=== PATIENT | female | born 1960 | race Caucasian/White ===

== ENCOUNTER 2017-01-12 11:12 | Observation (INO) ==
[2017-01-12 12:47] LABS: Basophils % 0.3 %; Eosinophils % 0.1 %; Hematocrit 43.6 % (35.3-44.9); Hemoglobin 13.9 g/dL (11.5-15.4); Immature Granulocytes % 0.3 % (0-4); Lymphocytes # 1.8 K/mcL (0.6-4.6); Lymphocytes % 11.4 %; Mean Corpuscular HGB Conc 31.9 g/dL (31.6-35.5); Mean Corpuscular Hemoglobin 26.1 pg (28.0-33.3); Mean Platelet Volume 11.4 fL (9.4-12.4); Monocytes % 6.2 %; Platelet Count 289 K/mcL (140-400); Red Blood Count 5.32 M/mcL (3.82-4.97); Red Cell Distribution Width 15.7 % (11.5-14.5); Segmented Neutrophils % 81.7 %
[2017-01-12 13:04] LABS: BUN/Creatinine Ratio 9 (6-26); Blood Urea Nitrogen 6 mg/dL (7-20); Carbon Dioxide 20 mEq/L (19-29); Chloride 110 mEq/L (98-109); Glucose 133 mg/dL (70-99); Osmolality,Calculated 290 (280-300); Potassium 3.9 mEq/L (3.5-4.5); Sodium 140 mEq/L (136-145); eGFR For African Americans > 60 (> 60); eGFR For Non-African Americans > 60 (> 60)
[2017-01-12] MEDS ORDERED: Ipratropium/Albuterol Neb 3 ML IH ONE (13:26)
[2017-01-12] MEDS ORDERED: 0.9 % Sodium Chloride 1,000 ML IVC ONE (13:27)
[2017-01-12] MEDS ORDERED: methylPREDNISolone 125 MG/2 ML VIAL IVP ONE (13:27)
[2017-01-12] MEDS ORDERED: Levofloxacin 750 MG/150 ML 750 MG/150 ML BAG IVPB ONE (16:10)
--- NOTE | 2017-01-12 16:18 | Emergency Department Note ---
Disposition Clinical Impression: Hypoxia, COPD exacerbation Left lower lobe pneumonia Qualifiers: Pneumonia type: due to unspecified organism Qualified Code(s): J18.1 - Lobar pneumonia, unspecified organism Disposition: Admitted As Inpatient Condition: Fair General Adult HPI - General Chief complaint: ED Chest Pain Stated complaint: cp constant since last night Time Seen by Provider: 01/12/17 12:48 Source: patient, family Limitations: no limitations Nursing Notes Reviewed: Yes Vital Signs Reviewed: Yes - History of Present Illness HPI Narrative: 56 year old female presents to the emergency department with a complaint of pleuritic chest pain that started since last night. Patient is a COPDer with no history of having COPD exacerbations. She does not require any oxygen at home. She is on multiple respiratory inhalers for management of her COPD. Patient states that she has had a history of blood clots previously. Pain Scale: 9 - Related Data Home Medications Medication Instructions Recorded Confirmed Albuterol Sulfate [Albuterol 2 puff IH Q4HR PRN 02/12/15 01/12/17 Inhaler] Budesonide/Formoterol 160/4.5 2 puff IH BID 02/12/15 01/12/17 [Symbicort 160/4.5] Dexlansoprazole [Dexilant] 60 mg PO BID 02/12/15 01/12/17 Sennosides/Docusate Sodium [Senna 1 tab PO DAILY 02/12/15 01/12/17 Plus] Loratadine [Claritin] 10 mg PO DAILY PRN 06/17/15 01/12/17 Ondansetron [Zofran] 8 mg PO DAILY 06/17/15 01/12/17 Zolpidem [Ambien] 10 mg PO HS 06/17/15 01/12/17 Oxycodone HCl [Oxaydo] 5 mg PO Q6H PRN 01/02/16 01/12/17 Atorvastatin Calcium [Lipitor] 20 mg PO HS 01/12/17 01/12/17 Oxycodone HCl [Oxycontin] 40 mg PO Q12H 01/12/17 01/12/17 Previous Rx's Medication Instructions Recorded Clopidogrel [Plavix] 75 mg PO DAILY 30 Days tablet 02/20/15 Allergies Allergy/AdvReac Type Severity Reaction Status Date / Time aspirin [ASA] Allergy Intermediate Hives Verified 01/12/17 11:19 All systems ED: reviewed and negative except as stated. Review of Systems: As Per HPI Constitutional: Denies: fever Cardiovascular: Reports: chest pain, other Respiratory: Reports: dyspnea. Denies: wheezes, hemoptysis Neurological: Denies: headache Past Medical History - Past Medical History Medical history: Reports: arthritis, COPD, fibromyalgia, GERD, hyperlipidemia Surgical history: Reports: other (She has had exporatory surgery for ruptured tubal .) Psychiatric history: Reports: no psych history [employer] history: Reports: ectopic - Social History Smoking Status: Current every day smoker Smokeless Tobacco Status: No Alcohol use: Reports: none Drug use: Reports: none Physical Exam - General Limitations: no limitations General appearance: alert, in no apparent distress - Head Head exam: atraumatic, normocephalic - Eye Eye exam: Present: EOMI. Absent: scleral icterus, conjunctival injection - ENT ENT exam: normal oropharynx - Neck Neck exam: Present: trachea midline - Chest Chest inspection: Present: symmetric chest wall rise - Respiratory Respiratory exam: Present: normal lung sounds bilaterally, respiratory distress - Cardiovascular Cardiovascular exam: Present: tachycardia - Abdominal Exam Abdominal exam: Present: soft, Non-Tender. Absent: distention, guarding, rebound - Extremities Exam Extremities exam: Absent: pedal edema, calf tenderness Course Vital Signs Temperature 97.9 F 01/12/17 11:16 Pulse Rate 116 01/12/17 11:16 Respiratory Rate 20 01/12/17 11:16 Blood Pressure 143/92 01/12/17 11:16 O2 Sat by Pulse Oximetry 95 01/12/17 11:16 Temperature 97.9 F 01/12/17 11:16 Pulse Rate 88 01/12/17 19:53 Respiratory Rate 16 01/12/17 20:03 Blood Pressure 114/66 01/12/17 20:03 O2 Sat by Pulse Oximetry 94 01/12/17 19:53 Oxygen Delivery Oxygen Delivery Nasal Cannula Medical Decision Making - [facility] Narrative Medical decision making narrative: 56 year old female presents to the emergency department with SOB, hypoxic on room air, tachycardic with pleuritic chest pain. EKG did not reveal any ischemic changes. Troponin was not elevated. Chest x-ray revealed emphysema but no acute pulmonary abnormality. We obtained a CTA of the chest due to concern for a pulmonary embolus. This revealed no evidence of a PE, but did reveal left lower lobe airspace disease that could be correlated with pneumonia. Patient had a leukocytosis of 15.9 along with her tachycardia, associated with a new shortness of breath, we felt as if this patient had pneumonia. We gave her Levaquin in the emergency department as well as 125 of Solu-Medrol, 3 duo nebs. Patient stated that she was feeling a lot better after administration of DuoNeb's. However, when decided to discharge the patient home we attempted to road test her. We pulled the patient off her nasal cannula, and her oxygen saturation went down to 92 before ambulation. Patient does not have any oxygen at home. We discussed admission with the patient as I do not think called. This patient home hypoxic without oxygen. Her agreed to admission. I spoke with the hospitalist on the phone they agreed to accept her. Patient was hemodynamically stable and not in acute distress at time of admission. Pulse went from 116 to 88 in the emergency department Chest X-Ray 01/12/17 11:14 IMPRESSION: 1. Emphysema. No superimposed acute pulmonary abnormality. D/ / Anoop Urban MD / Anoop Urban MD Interpreting Provider: Anoop Urban MD Chest CTA 01/12/17 13:10 IMPRESSION: 1. No evidence of pulmonary embolism 2. Left lower lobe airspace disease with trace effusion. Correlate with any clinical findings of pneumonia 3. Emphysema D/ / Danilo Moreno MD / Danilo Moreno MD Interpreting Provider: Danilo Moreno MD Vital Signs Temperature 97.9 F 01/12/17 11:16 Pulse Rate 116 01/12/17 11:16 Respiratory Rate 20 01/12/17 11:16 Blood Pressure 143/92 01/12/17 11:16 O2 Sat by Pulse Oximetry 95 01/12/17 11:16 Temperature 97.9 F 01/12/17 11:16 Pulse Rate 88 01/12/17 19:53 Respiratory Rate 16 01/12/17 20:03 Blood Pressure 114/66 01/12/17 20:03 O2 Sat by Pulse Oximetry 94 01/12/17 19:53 Oxygen Delivery Oxygen Delivery Nasal Cannula - Medical Records Medical records reviewed: Yes I reviewed the patient's medical records. - Lab Data Lab results reviewed: Yes I reviewed the patient's lab results. Result diagrams: 01/12/17 12:32 01/12/17 12:32 Lab Results 01/12/17 01/12/17 01/12/17 Range/Units 12:32 12:32 12:32 WBC 15.9 H (4.3-11.1) K/mcL RBC 5.32 H (3.82-4.97) M/mcL Hgb 13.9 (11.5-15.4) g/dL Hct 43.6 (35.3-44.9) % MCV 82.0 L (83.0-100.0) fL MCH 26.1 L (28.0-33.3) pg MCHC 31.9 (31.6-35.5) g/dL RDW 15.7 H (11.5-14.5) % Plt Count 289 (140-400) K/mcL MPV 11.4 (9.4-12.4) fL Immature Gran % 0.3 (0-4) % Seg Neutrophils % 81.7 % Lymphocytes % 11.4 % Monocytes % 6.2 % Eosinophils % 0.1 % Basophils % 0.3 % Neutrophils # 13.0 H (1.6-8.9) K/mcL Lymphocytes # 1.8 (0.6-4.6) K/mcL Monocytes # 1.0 (0.0-1.3) K/mcL Eosinophils # 0.0 (0.0-0.6) K/mcL Basophils # 0.0 (0.0-0.2) K/mcL Sodium 140 (136-145) mEq/L Potassium 3.9 (3.5-4.5) mEq/L Chloride 110 H (98-109) mEq/L Carbon Dioxide 20 (19-29) mEq/L BUN 6 L (7-20) mg/dL Creatinine 0.69 (0.57-1.11) mg/dL Est GFR ( Amer) > 60 (> 60) Est GFR (Non-Af Amer) > 60 (> 60) BUN/Creatinine Ratio 9 (6-26) Glucose 133 H (70-99) mg/dL Calculated Osmolality 290 (280-300) Lactic Acid 1.2 (0.5-2.2) mmol/L Calcium 9.0 (8.6-10.8) mg/dL Troponin I (0-0.03) ng/mL B-Natriuretic Peptide (0-100) pg/mL 01/12/17 01/12/17 Range/Units 12:32 12:32 WBC (4.3-11.1) K/mcL RBC (3.82-4.97) M/mcL Hgb (11.5-15.4) g/dL Hct (35.3-44.9) % MCV (83.0-100.0) fL MCH (28.0-33.3) pg MCHC (31.6-35.5) g/dL RDW (11.5-14.5) % Plt Count (140-400) K/mcL MPV (9.4-12.4) fL Immature Gran % (0-4) % Seg Neutrophils % % Lymphocytes % % Monocytes % % Eosinophils % % Basophils % % Neutrophils # (1.6-8.9) K/mcL Lymphocytes # (0.6-4.6) K/mcL Monocytes # (0.0-1.3) K/mcL Eosinophils # (0.0-0.6) K/mcL Basophils # (0.0-0.2) K/mcL Sodium (136-145) mEq/L Potassium (3.5-4.5) mEq/L Chloride (98-109) mEq/L Carbon Dioxide (19-29) mEq/L BUN (7-20) mg/dL Creatinine (0.57-1.11) mg/dL Est GFR ( Amer) (> 60) Est GFR (Non-Af Amer) (> 60) BUN/Creatinine Ratio (6-26) Glucose (70-99) mg/dL Calculated Osmolality (280-300) Lactic Acid (0.5-2.2) mmol/L Calcium (8.6-10.8) mg/dL Troponin I 0.00 (0-0.03) ng/mL B-Natriuretic Peptide 106 H (0-100) pg/mL - Radiology Data Radiology results reviewed: Yes I reviewed the patient's radiology results. Attestation Statement - Attestation Attestation: I, Marko Hodge DO, examined this patient [id number] and my medical decision-making was reviewed with Dr. Alen Alcantara. , Resident Physician. I agree with the documented findings, disposition and treatment plan as described except to the extent set forth below. Please see my progress notes for details. 56-year-old female presents emergency room a chest pain shortness of breath and difficulty with breathing. Patient was concerned because of tachycardia and intermittent hypoxia. CT angiography was completed the chest did not show any acute signs of pulmonary emboli but did show pneumonia. Patient reportedly started on antibiotics at this time. She does have baseline COPD. Treatment this point. EKG and troponin are otherwise unremarkable. Patient required admission for further evaluation and definitive management. See detailed documentation of physical exam, medical intervention, medical decision- making and disposition and the resident physician's note.
[2017-01-12] MEDS ORDERED: *HR* OxyCODONE ER (12 HR) 40 MG TABLET PO SCH (23:30)
[2017-01-12] MEDS ORDERED: *HR* OxyCODONE Immed Rel 5 MG TABLET PO PRN (23:30)
--- NOTE | 2017-01-12 23:37 | Internal Med History&Physical ---
Date of Encounter: 01/12/17 Time of Encounter: 23:35 Assessment and Plan (1) Community acquired bacterial pneumonia Current visit: Yes Status: Acute Levofloxacin. Check sputum culture. (2) COPD (chronic obstructive pulmonary disease) Current visit: No Status: Chronic I would keep the patient on [id number] nebulizer treatment. Patient was not actively wheezing during my interview. I do not think the patient steroids currently. Reevaluate Qualifiers: Qualified Code(s): J44.9 - Chronic obstructive pulmonary disease, unspecified Internal Medicine - H&P: HPI Chief complaint: sob History of present illness: Ms. Beltran is a 56 year old female with history of COPD not on O2, presents to the emergency room today with them in complaining of shortness of breath. For the past 2 weeks patient has been noticing progressive shortness of breath with minimal exertion. She scoffed but no increased sputum production. She also denies any fevers or chills. She has been having some lower chest discomfort with no clear relation to exertion last for long duration but is more related with coughing and inspiration. She denies any recent antibiotic use. No recent hospitalization. Past Med Surg Social Fam HX - Past Medical History Medical history: arthritis, COPD, fibromyalgia, GERD, hyperlipidemia Psychiatric history: no psych history - Past Surgical History Surgical History: other - Social History Smoking Status: Current every day smoker Smokeless Tobacco Status: No Alcohol use: none Drug use: none Internal Medicine - H&P: Meds Albuterol Sulfate [Albuterol Inhaler] 2 puff IH Q4HR PRN 02/12/15 [History] Budesonide/Formoterol 160/4.5 [Symbicort 160/4.5] 2 puff IH BID 02/12/15 [ History] Dexlansoprazole [Dexilant] 60 mg PO BID 02/12/15 [History] Sennosides/Docusate Sodium [Senna Plus] 1 tab PO DAILY 02/12/15 [History] Clopidogrel [Plavix] 75 mg PO DAILY 30 Days tablet 02/20/15 [Rx] Loratadine [Claritin] 10 mg PO DAILY PRN 06/17/15 [History] Ondansetron [Zofran] 8 mg PO DAILY 06/17/15 [History] Zolpidem [Ambien] 10 mg PO HS 06/17/15 [History] Oxycodone HCl [Oxaydo] 5 mg PO Q6H PRN 01/02/16 [History] Atorvastatin Calcium [Lipitor] 20 mg PO HS 01/12/17 [History] Oxycodone HCl [Oxycontin] 40 mg PO Q12H 01/12/17 [History] 3 Allergy/AdvReac Type Severity Reaction Status Date / Time aspirin [ASA] Allergy Intermediate Hives Verified 01/12/17 11:19 All Systems PM: A 10-system review of systems was performed and is negative for pertinent findings except as documented above in the HPI. Review of systems: 10 point review systems is negative except for HPI - Constitutional Vitals: Temp Pulse Resp BP Pulse Ox 98.5 F 85 17 133/76 91 01/12/17 21:29 01/12/17 21:29 01/12/17 21:29 01/12/17 21:29 01/12/17 21:29 Exam: Gen.: patient is alert oriented times 3 cardiac: normal S1 S2 no additional sounds or murmurs chest: few crackles in bases. Slightly diminished air entry. No active wheezing. abdomen soft nontender nondistended normal bowel sounds lower extremity no swelling. Neuro: no new focal deficits Internal Med - H&P Results - Labs CBC & Chem 7: 01/12/17 12:32 01/12/17 12:32
[2017-01-13] MEDS: Ipratropium/Albuterol Neb 3 ML IH SCH ×2 (04:21→10:21)
[2017-01-13 05:21] LABS: Basophils % 0.1 %; Hematocrit 39.4 % (35.3-44.9); Hemoglobin 12.6 g/dL (11.5-15.4); Immature Granulocytes % 0.4 % (0-4); Lymphocytes # 1.4 K/mcL (0.6-4.6); Lymphocytes % 10.2 %; Mean Corpuscular Hemoglobin 26.4 pg (28.0-33.3); Mean Corpuscular Volume 82.6 fL (83.0-100.0); Mean Platelet Volume 11.9 fL (9.4-12.4); Monocytes # 0.5 K/mcL (0.0-1.3); Monocytes % 3.8 %; Neutrophils # 11.6 K/mcL (1.6-8.9); Platelet Count 241 K/mcL (140-400); Red Blood Count 4.77 M/mcL (3.82-4.97); Red Cell Distribution Width 15.6 % (11.5-14.5); Segmented Neutrophils % 85.5 %
[2017-01-13 05:44] LABS: BUN/Creatinine Ratio 12 (6-26); Blood Urea Nitrogen 8 mg/dL (7-20); Calcium 8.9 mg/dL (8.6-10.8); Carbon Dioxide 21 mEq/L (19-29); Chloride 113 mEq/L (98-109); Creatine Kinase 21 Units/L (29-168); Glucose 130 mg/dL (70-99); Magnesium 2.2 mg/dL (1.6-2.6); Osmolality,Calculated 292 (280-300); Potassium 4.1 mEq/L (3.5-4.5); Sodium 141 mEq/L (136-145); eGFR For African Americans > 60 (> 60); eGFR For Non-African Americans > 60 (> 60)
--- NOTE | 2017-01-13 08:59 | Discharge Summary ---
Date of Encounter: 01/13/17 Time of Encounter: 08:10 - Discharge Diagnosis (1) Community acquired bacterial pneumonia Priority: Primary Status: Acute Comments: Left lower lobe community-acquired bacterial pneumonia, present on admission IV Levaquin given in the hospital, continue PO Levaquin at home, continue DuoNeb breathing treatment CTA chest - no evidence of PE, left lower airspace disease, emphysema Return if symptoms worsen, follow up with primary care physician Patient refuses to stay in the hospital anymore and demands to be discharged today Refuses nicotine patch and does not want to quit smoking (2) COPD (chronic obstructive pulmonary disease) Priority: Primary Status: Acute Comments: Acute exacerbation of COPD - slowly improving Advised patient to continue DuoNeb breathing treatment at home, tapering dose of Prednisone, Symbicort Return if symptoms worsen, follow up with primary care physician Patient refuses to stay in the hospital and demands to be discharged today Qualifiers: COPD type: COPD with acute exacerbation Qualified Code(s): J44.1 - Chronic obstructive pulmonary disease with (acute) exacerbation (3) Tobacco abuse Priority: Primary Status: Chronic Comments: Counseled extensively about cessation, nicotine patch prescription given Patient refuses nicotine patch She states she does not want to quit smoking whatsoever (4) GERD (gastroesophageal reflux disease) Priority: Secondary Status: Chronic Comments: Continue home dose of Dexilant Qualifiers: Esophagitis presence: esophagitis presence not specified Qualified Code(s) : K21.9 - Gastro-esophageal reflux disease without esophagitis (5) Hyperlipidemia Priority: Secondary Status: Chronic Comments: Continue home dose of Lipitor Qualifiers: Hyperlipidemia type: unspecified Qualified Code(s): E78.5 - Hyperlipidemia , unspecified - Discharge Medications Prescriptions: Ipratropium/Albuterol Neb [Duoneb] 3 ml IH [id number] #30 inhsol levoFLOXacin [Levaquin] 750 mg PO DAILY 7 Days #7 tablet Nicotine Patch [Nicoderm] 21 mg TD DAILY #30 patch.[id number] predniSONE [PredniSONE] 20 mg PO DAILY #7 tablet Home Medications: Albuterol Sulfate [Albuterol Inhaler] 2 puff IH Q4HR PRN 02/12/15 [History] Budesonide/Formoterol 160/4.5 [Symbicort 160/4.5] 2 puff IH BID 02/12/15 [ History] Dexlansoprazole [Dexilant] 60 mg PO BID 02/12/15 [History] Sennosides/Docusate Sodium [Senna Plus] 1 tab PO DAILY 02/12/15 [History] Clopidogrel [Plavix] 75 mg PO DAILY 30 Days tablet 02/20/15 [Rx] Loratadine [Claritin] 10 mg PO DAILY PRN 06/17/15 [History] Ondansetron [Zofran] 8 mg PO DAILY 06/17/15 [History] Zolpidem [Ambien] 10 mg PO HS 06/17/15 [History] Oxycodone HCl [Oxaydo] 5 mg PO Q6H PRN 01/02/16 [History] Atorvastatin Calcium [Lipitor] 20 mg PO HS 01/12/17 [History] Oxycodone HCl [Oxycontin] 40 mg PO Q12H 01/12/17 [History] Ipratropium/Albuterol Neb [Duoneb] 3 ml IH [id number] #30 inhsol 01/13/17 [Rx] Nicotine Patch [Nicoderm] 21 mg TD DAILY #30 patch.[id number] 01/13/17 [Rx] levoFLOXacin [Levaquin] 750 mg PO DAILY 7 Days #7 tablet 01/13/17 [Rx] predniSONE [PredniSONE] 20 mg PO DAILY #7 tablet 01/13/17 [Rx] Allergies/Adverse Reactions: 3 Allergy/AdvReac Type Severity Reaction Status Date / Time aspirin [ASA] Allergy Intermediate Hives Verified 01/12/17 11:19 Date of admission: 01/12/17 17:29 Primary care physician: Buddy Cuadra MD Consults: 01/12/17 23:31 Consult to Occupational Therapy [CONS] Routine Comment: Evaluate, develop and implement POC Reason for Consult: [email or web address] Consult to Physical Therapy [CONS] Routine Comment: Evaluate, develop and implement POC Reason for Consult: weakness Anticipated date of discharge: 01/13/17 - Patient Status Disposition: Home, Self-Care Condition: Fair Functional capacity at discharge: independent ambulation Overall status at discharge: patient is progressing back to baseline - Discharge Instructions Follow Up With: Buddy Cuadra MD [Primary Care Provider] - 01/18/17 10:15 am - Diet and Activity Activity: increase activity as tolerated, resume usual activities as tolerated Diet: advance to your usual diet Hospital course: Ms. Beltran is a 56 year old female with past medical history of COPD, GERD, hyperlipidemia, fibromyalgia and arthritis. Patient is a current daily smoker who smokes about 2 packs of cigarettes daily. She presents to the ED with complaints of shortness of breath that started about 2 weeks ago and has been worsening gradually. Patient also complains of cough with sputum production. Patient was admitted for acute exacerbation of COPD and left lower lobe community-acquired pneumonia, which was present on admission. Patient was started on empiric IV Levaquin and she was also continued on DuoNeb breathing treatment. CTA of the chest is negative for PE. Patient was initially on oxygen but is now comfortable on room air her O2 sat is 93%. Patient has been counseled extensively about smoking cessation and was offered nicotine patch. She has refused the nicotine patch and states that she has no intention to quit smoking. Patient states she feels better and wants to go home today. She demands to be discharged today. Patient has been advised about need for at least 4 more days in the hospital, but she refuses. She has been explained about her condition and plan of care in detail. She understood and agreed. No unanswered questions. Patient is ambulating well and tolerating oral diet well. Patient has been advised to continue all her home medications. Advised to return if symptoms worsen. Advised to follow with primary care physician. Time spent discussing smoking cessation with patient: 3 to 10 minutes - Time Spent with Patient Total time spent providing and/or coordinating discharge services: Less than 30 minutes - Constitutional Vitals: Temp Pulse Resp BP Pulse Ox 97.9 F 74 18 109/63 96 01/13/17 06:32 01/13/17 06:32 01/13/17 06:32 01/13/17 06:32 01/13/17 06:32 General appearance: Present: A&O X 3, pleasant, no acute distress, answers questions appropriately. Absent: cooperative - Head Head exam: Present: atraumatic - Eye Eye exam: Present: EOMI - ENT ENT exam: Present: mucous membranes moist - Respiratory Respiratory exam: Present: rhonchi (Bilateral), wheezes (Bilateral). Absent: accessory muscle use, chest wall tenderness, rales, tachypnea - Cardiovascular Cardiovascular exam: Present: RRR, +S1, +S2 - GI/Abdominal GI/Abdominal exam: Present: soft. Absent: distended, firm, guarding, tenderness - Extremities Exam Extremities exam: Present: radial pulses palpable and symmetrical. Absent: calf tenderness, cyanotic, pedal edema - Neurological Exam Neurological exam: Present: alert, oriented X3, no focal deficits. Absent: facial droop, speech deficit
[2017-01-13] MEDS ORDERED: Dexlansoprazole [Dexilant] 60 MG PO SCH (09:00)
[2017-01-13] MEDS ORDERED: Levofloxacin 750 MG/150 ML 750 MG/150 ML BAG IVPB SCH (09:00)
[2017-01-13] MEDS ORDERED: Sennosides/Docusate Sodium TABLET PO SCH (09:00)
[2017-01-13] MEDS ORDERED: Ondansetron ODT 4 MG TAB.RAPDIS PO SCH (09:00)
[2017-01-13] MEDS ORDERED: Budesonide/Formoterol 160/4.5 MDI IH SCH (10:00)
[2017-01-13 11:19] VITALS: BP 131/77
--- NOTE | 2017-01-13 16:40 | Electrocardiograph Report ---
[address] [place], [place] [address] Test Date: 2017-01-12 Pat Name: Hanna Beltran Department: 104 Room: [facility] Gender: F Sap Senior Developer: SHERON : 1960 Requested By: Marko Hodge Order Number: [id number] Reading MD: Hakeem Christensen MD Measurements Intervals [place] Rate: 114 P: 66 [place]: 145 QRS: 21 QRSD: 89 T: 48 QT: 321 QTc: 388 Interpretive Statements SINUS TACHYCARDIA Electronically Signed On 01-13-2017 16:38:31 EST by Hakeem Christensen MD
[2017-01-15 18:10] LABS: CK-MB (CK isoenzymes) 0 % (0-4); CK-MM (CK-isoenzymes) 100 % (96-100)
[2017-01-18 08:09] LABS: CK Total (Ck Isoenzymes) 25 U/L (20-180); CK-BB (CK isoenzymes) 0 % (0-0)
== END 2017-01-13 13:08 | disposition home or self-care (01) ==
LOC: 2ANU 11:12 → EMEROO 11:12 → 3NENU 20:08
PROVIDERS: ADMIT Family Medicine; ATTEND Internal Medicine